=== PATIENT | male | born 1980 | race Caucasian/White ===

== ENCOUNTER 2022-04-01 08:40 | Emergency (ER) | payer SELFPAY ==
[2022-04-01 08:48] VITALS: BMI 25.8
[2022-04-01] MEDS ORDERED: HALOPERIDOL LACTATE 5 MG/ML IM ONE ×2 (09:05→09:11)
[2022-04-01] MEDS ORDERED: LACTATED RINGERS SOLUTION 1000 ML INFUS.BAG IV ONE (09:12)
[2022-04-01 09:25] LABS: BASO % 0.7 % (0-2.0); EOS % 3.8 % (0-4.5); HEMATOCRIT 53.5 % (35.4-49); HEMOGLOBIN 18.8 GM/dL (11.7-16.9); MCH 32.5 pg (25.7-33.7); MCHC 35.1 g/dl (32.0-35.9); MEAN CELL VOLUME 92.6 fl (80-96); MEAN PLT VOLUME 7.5 fl (7.5-11.1); MONO % 8.3 % (3.8-10.2); NEUT % 65.2 % (42.8-82.8); PLATELET COUNT 261 10^3/uL (134-434); RBC 5.78 M/mm3 (4.00-5.60); WHITE BLOOD COUNT 11.5 K/mm3 (4.0-10.0)
[2022-04-01 09:37] LABS: INR 1.01 (0.83-1.09); PROTHROMBIN TIME (PATIENT) 11.6 SEC (9.7-13.0)
[2022-04-01 09:40] LABS: ACTIVATED PTT 23.6 SECONDS (25.2-36.5)
[2022-04-01 09:53] LABS: ALBUMIN 4.3 g/dl (3.4-5.0); BLOOD UREA NITROGEN 11.6 mg/dL (7-18); CALCIUM 9.2 mg/dL (8.5-10.1)
[2022-04-01 09:55] LABS: CREATININE 1.2 mg/dL (0.55-1.3)
[2022-04-01 09:57] LABS: BILIRUBIN,TOTAL 0.8 mg/dL (0.2-1); TOT PROT 8.2 g/dl (6.4-8.2)
[2022-04-01 10:28] LABS: EPI CELLS 3 /uL (0-25.1); HYALINE CASTS 1 /uL (0-3.1); PH,URINE 5.5 (5.0-8.0); URINE APPEARANCE CLEAR; URINE BACTERIA 4 /uL (0-1359); URINE BILIRUBIN NEGATIVE (NEGATIVE); URINE COLOR YELLOW; URINE GLUCOSE (UA) NEGATIVE (NEGATIVE); URINE KETONE NEGATIVE (NEGATIVE); URINE LEUK ESTERASE NEGATIVE (NEGATIVE); URINE NITRITE NEGATIVE (NEGATIVE); URINE PROTEIN TRACE (NEGATIVE); URINE RBC 10 /uL (0-23.9); URINE UROBILINOGEN 0.2 mg/dL (0.2-1.0); URINE WBC 4 /uL (0-25.8)
[2022-04-01 13:48] VITALS: BP 117/78; PULSE 112; RESP 20; TEMP 98.1
== END 2022-04-01 13:49 | disposition home or self-care (01) ==
LOC: JER 08:40
PROC: 3E033GC Introduction of Other Therapeutic Substance into Peripheral Vein, Percutaneous Approach (ICD-10-PCS; principal; 2022-04-01)
DX: R51.9 Headache, unspecified (principal); F10.929 Alcohol use, unspecified with intoxication, unspecified; T14.8XXA Other injury of unspecified body region, initial encounter; V03.10XA Pedestrian on foot injured in collision with car, pick-up truck or van in traffic accident, initial encounter
CPT/HCPCS: 36415; 70450-TC; 71045-TC-FY; 71260-TC; 72125-TC; 72170-TC-FY; 74177-TC; 80053; 80307; 81003; 83690; 85025; 85610; 85730; 86850; 86900; 86901; 87086; 93005; 93010; 99285-25; C9803-CS; Q9967; U0003; U0005